=== PATIENT | male | born 1970 | race Caucasian/White ===

== ENCOUNTER 2017-10-15 09:37 | Day surgery (SDC) | payer OTHER ==
[2017-10-15] MEDS ORDERED: Ringers Lactate 1,000 ML IV ONE (09:57)
[2017-10-15] MEDS: DEXAMETHASONE 10 MG/ML VIAL ONE ×2 (11:16→11:57)
[2017-10-15] MEDS ORDERED: PROPOFOL 200 MG/20 ML VIAL IV ONE (11:19)
[2017-10-15] MEDS ORDERED: MIDAZOLAM HCL 2 MG/2 ML INJ ONE (11:19)
[2017-10-15] MEDS ORDERED: FENTANYL CITR 100 MCG/2 ML ONE (11:19)
--- NOTE | 2017-10-15 12:05 | P.OP ---
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 Details of Operation: The patient was brought to the operating room and placed under general anesthesia via inhalation mask. The left ear was visualized under the operating microscope. A speculum aided visualization. Cerumen was removed from the canal using a wire curette. A myringotomy incision was made in the superior aspect with a 27g needle. A second myringotomy was made in the inferior aspect, about 6oclock on the TM. Dexamethasone 10mg/ml was instilled to the middle ear space until completely filled and a cotton ball placed at the meatus. Due to serous middle ear effusion or notable middle ear retraction, no tympanostomy tube placement was indicated. Disposition: The patient was then awakened from anesthesia and taken to the recovery room in stable condition.
== END 2017-10-15 13:18 | disposition home or self-care (01) ==
LOC: OR 09:37
PROVIDERS: ATTEND Otolaryngology
PROC: 3E0 Administration, Physiological Systems and Anatomical Regions, Introduction (ICD-10-PCS; 2017-10-15)
PROC: 099670Z Drainage of Left Middle Ear with Drainage Device, Via Natural or Artificial Opening (ICD-10-PCS; principal; 2017-10-15 11:00)
DX: H65.02 Acute serous otitis media, left ear (principal); H91.22 Sudden idiopathic hearing loss, left ear; H93.12 Tinnitus, left ear; I10 Essential (primary) hypertension; Z72.0 Tobacco use; Z82.49 Family history of ischemic heart disease and other diseases of the circulatory system; Z82.3 Family history of stroke
CPT/HCPCS: J1100; J2250; J3010

== ENCOUNTER 2022-02-21 12:28 | Emergency (ER) | payer OTHER ==
--- OUTSIDE RECORDS SUMMARY | 2022-02-21 12:40 | XMS REPORT | Continuity of Care Document ---
:1970 Author Organization [facility] t Address [address] [place] [address] Care Team Providers Name Role Phone DUONG PEREZ Primary Care Physician Unavailable BENEDICTO FAGAN Attending Clinician Unavailable Arjun_Miguel Attending Clinician Unavailable Kuldip Admitting Clinician Unavailable Problems This patient has no known problems. Allergies, Adverse Reactions, Alerts Allergy Allergy Status Severity Reaction(s) Onset Inactive Treating Comm ents Source Name Type Date Date Clinician [facility] Active N/V [facility] H INGREDI 06-08 ity of [facility] 00:00: [address] Medications This patient has no known medications. Procedures This patient has no known procedures. Encounters Start End Encounter Admission Attending Care Care Encounter Source Date/Time Date/Time Type Type Clinicians Facility Department ID 2022-02-26 2022-02-26 Outpatient Stanislav FAGAN [facility] [id number] [facility] 09:30:00 09:30:00 [facility] [id number] 2019-08-30 Outpatient Kuldip [facility] [id number] [place] 10:42:00 10:42:00 [id number] [facility] Results This patient has no known results.
[2022-02-21] MEDS ORDERED: LIDOCAINE JELLY 2%- 5 ML TUBE ONE (13:09)
[2022-02-21] MEDS ORDERED: LIDOCAINE 1% MPF 5 ML VIAL ONE (13:19)
--- NOTE | 2022-02-21 14:52 | ER ---
Nurse's Notes [facility] Name: Alvaro Priest Age: 51 yrs Sex: Male : 1970 Arrival Date: 02/21/2022 Time: 12:30 Bed 20 [facility] MD: Boaz Chavez Diagnosis: Thrombosed external hemorrhoid Presentation: 02/21 12:40 Chief complaint: Painful hemorrhoid x 3 days. Coronavirus screen: At this time, the hb client does not indicate any symptoms associated with coronavirus-19. Ebola Screen: No symptoms or risks identified at this time. Initial Sepsis Screen: Does the patient meet any 2 criteria? No. Patient's initial sepsis screen is negative. Does the patient have a suspected source of infection? No. Patient's initial sepsis screen is negative. Risk Assessment: Do you want to hurt yourself or someone else? Patient reports no desire to harm self or others. Onset of symptoms was February 19, 2022. 12:40 Method Of Arrival: Ambulatory 12:40 Acuity: KYREE 3 hb Historical: - Allergies: 12:41 No Known Allergies; hb - Immunization history:: Client reports having NOT received the Covid vaccine. - Social history:: Smoking status: Patient denies any tobacco usage or history of. Screenin:03 Abuse screen: Denies threats or abuse. Denies injuries from another. Nutritional tp1 screening: No deficits noted. Tuberculosis screening: No symptoms or risk factors identified. Fall Risk No fall in past 12 months (0 pts). No secondary diagnosis (0 pts). No IV (0 pts). Ambulatory Aid- None/Bed Rest/Nurse Assist (0 pts). Gait- Normal/Bed Rest/Wheelchair (0 pts) Mental Status- Oriented to own ability (0 pts). Total Shah Fall Scale indicates No Risk (0-24 pts). Assessment: 12:50 General: Appears in no apparent distress. uncomfortable, Behavior is calm, cooperative. tp1 Pain: Complains of pain in buttocks Pain does not radiate. Pain currently is 8 out of 10 on a pain scale. Quality of pain is described as sharp, Is continuous. Neuro: Level of Consciousness is awake, alert, obeys commands, Oriented to person, place, time, situation. Cardiovascular: Patient's skin is warm and dry. Respiratory: Airway is patent Respiratory effort is even, unlabored. GI: Abdomen is round non-distended, Last BM was February 19, 2022. Patient currently denies bloody stool, nausea, vomiting. : No signs and/or symptoms were reported regarding the genitourinary system. EENT: No signs and/or symptoms were reported regarding the EENT system. Derm: protruding hemoid that appears red with a small amount of drainage. Musculoskeletal: Circulation, motion, and sensation intact. 13:50 Reassessment: Patient appears in no apparent distress at this time. No changes from tp1 previously documented assessment. Patient and/or family updated on plan of care and expected duration. Pain level reassessed. Patient is alert, oriented x 3, equal unlabored respirations, skin warm/dry/pink. 14:54 Reassessment: Patient appears in no apparent distress at this time. Patient is alert, tp1 oriented x 3, equal unlabored respirations, skin warm/dry/pink. Patient states feeling better. Vital Signs: 12:40 BP 141 / 101; Pulse 110; Resp 20; Temp 98.1; Pulse Ox 97% on R/A; Weight 112.49 kg; hb Height 6 ft. 1 in. (185.42 cm); Pain 10/10; 13:03 BP 131 / 90; Pulse 95; Resp 17; Pulse Ox 96% on R/A; tp1 14:40 BP 131 / 85; Pulse 88; Resp 16; Pulse Ox 100% on R/A; tp1 12:40 Body Mass Index 32.72 (112.49 kg, 185.42 cm) ED Course: 12:30 Patient arrived in ED. as 12:31 Boaz Chavez is Private Physician. as 12:35 Carrington Huerta PA is PHCP. m 12:35 Hilda Flores MD is Attending Physician. [facility] 12:41 Triage completed. hb 12:42 Arm band placed on. hb 12:50 Zenaida Ocampo, [place] is Primary Nurse. 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 tp1 13:03 Patient has correct armband on for positive identification. Placed in gown. Bed in low tp1 position. Call light in reach. Side rails up X 1. Adult w/ patient. 13:55 lancing Hemoriod, PT tolerated well. tp1 15:10 Patient did not have IV access during this emergency room visit. tp1 Administered Medications: 13:03 Drug: Lidocaine Gel 2 % 1 application Route: Mucous Membrane; tp1 13:55 Drug: Lidocaine (1 %) 5 ml Volume: 5 ml; Route: Infiltration; tp1 13:58 Not Given (Physician Discretion): Lidocaine-Epinephrine -1%: (1:100,000) 20 ml 20 ml tp1 Infiltration once; to bedside Medication: 13:03 VIS not applicable for this client. tp1 Outcome: 14:52 Discharge ordered by . charlie 15:10 Discharged to home ambulatory, with family. tp1 15:10 Condition: good 15:10 Discharge instructions given to patient, Instructed on discharge instructions, follow up and referral plans. Demonstrated understanding of instructions, follow-up care. 15:10 Patient left the ED. tp1 Signatures: Carrington Huerta PA PA jmm Martinez, Amelia as Baxter, Heather, RN RN Zenaida Ocampo RN RN tp1 Corrections: (The following items were deleted from the chart) 12:54 12:40 BP 141 / 101; Pulse 110bpm; Resp 20bpm; Pulse Ox 97% RA; 112.49 kg; Height 6 ft. hb 1 in.; BMI: 32.7; Pain 10/10; hb
--- NOTE | 2022-02-21 14:52 | EDPHYS ---
Physician Documentation [facility] Name: Alvaro Priest Age: 51 yrs Sex: Male : 1970 Arrival Date: 02/21/2022 Time: 12:30 Bed 20 Private MD: Boaz Chavez ED Physician Hilda Flores HPI: 02/21 12:59 This 51 yrs old Male presents to ER via Ambulatory with complaints of Hemorrhoids. jmm 12:59 The patient presents to the emergency department with pain in the rectal area. Onset: jmm The symptoms/episode began/occurred gradually, 3 day(s) ago. Patient complains of rectal pain secondary to a large external hemorrhoid beginning approx 3 days ago. Similar symptoms have occurred in the past. . Historical: - Allergies: 12:41 No Known Allergies; hb - Immunization history:: Client reports having NOT received the Covid vaccine. - Social history:: Smoking status: Patient denies any tobacco usage or history of. ROS: 12:59 Constitutional: Negative for fever, chills, and weight loss, Cardiovascular: Negative jmm for chest pain, palpitations, and edema, Respiratory: Negative for shortness of breath, cough, wheezing, and pleuritic chest pain. 12:59 Abdomen/GI: Positive for rectal pain. 12:59 All other systems are negative. Exam: 12:59 Constitutional: This is a well developed, well nourished patient who is awake, alert, jmm and in no acute distress. Head/Face: atraumatic. Eyes: EOMI, no conjunctival erythema appreciated ENT: Moist Mucus Membranes Neck: Trachea midline, Supple Chest/axilla: Normal chest wall appearance and motion. Cardiovascular: Regular rate and rhythm. No edema appreciated Respiratory: Normal respirations, no respiratory distress appreciated 12:59 Skin: General appearance color normal MS/ Extremity: Moves all extremities, no obvious deformities appreciated, no edema noted to the lower extremities Neuro: Awake and alert Psych: Behavior is normal, Mood is normal, Patient is cooperative and pleasant 12:59 Abdomen/GI: Rectal exam: hemorrhoid(s), external, with inflammation, with pain, with thrombosis, mass, that is moderate-sized, with tenderness, tenderness. Vital Signs: 12:40 BP 141 / 101; Pulse 110; Resp 20; Temp 98.1; Pulse Ox 97% on R/A; Weight 112.49 kg; hb Height 6 ft. 1 in. (185.42 cm); Pain 10/10; 13:03 BP 131 / 90; Pulse 95; Resp 17; Pulse Ox 96% on R/A; tp1 14:40 BP 131 / 85; Pulse 88; Resp 16; Pulse Ox 100% on R/A; tp1 12:40 Body Mass Index 32.72 (112.49 kg, 185.42 cm) hb Procedures: 16:11 I \T\ D: Incision and drainage was performed for an abscess of the external hemorrhoid jmm Prepped with Betadine, Anesthetized with 2 ml's 1% Lidocaine. Incised with #11 blade. Drained large amount bloody fluid. the patient tolerated the procedure well. MDM: 12:51 Patient medically screened. jmm 14:50 Data reviewed: vital signs, nurses notes. Counseling: I had a detailed discussion with [facility] the patient and/or guardian regarding: the historical points, exam findings, and any diagnostic results supporting the discharge/admit diagnosis, the need for outpatient follow up, to return to the emergency department if symptoms worsen or persist or if there are any questions or concerns that arise at home. 02/21 12:49 Order name: Garrywn patient; Complete Time: 13:03 [facility] Administered Medications: 13:03 Drug: Lidocaine Gel 2 % 1 application Route: Mucous Membrane; tp1 13:55 Drug: Lidocaine (1 %) 5 ml Volume: 5 ml; Route: Infiltration; tp1 13:58 Not Given (Physician Discretion): Lidocaine-Epinephrine -1%: (1:100,000) 20 ml 20 ml tp1 Infiltration once; to bedside Disposition: 16:16 STAFF ATTESTATION: The patient's history, exam findings, diagnostics and a summary of sd2 any interventions or procedures was reviewed in detail with the ED [facility]. I confirm the diagnosis as documented by the [facility] and I agree with the care plan articulated in the disposition section with regards to our discussion of the patient's case. Hilda Flores MD. Disposition Summary: 02/21/22 14:52 Discharge Ordered Location: Home [facility] Condition: Stable [facility] Diagnosis - Thrombosed external hemorrhoid [facility] Followup: [facility] - With: Private Physician - When: 2 - 3 days - Reason: Recheck today's complaints, Continuance of care, Re-evaluation by your physician Discharge Instructions: - Discharge Summary Sheet jmm - Hemorrhoids jm Forms: - Medication Reconciliation Form [email or web address] - Thank You Letter charlie - Antibiotic Education jmm - Work release form terrellm - Prescription Opioid Use charlie Signatures: Carrington Huerta PA PA jmm Baxter, Heather RN RN Zenaida Argueta RN RN tp1 Hilda Flores MD MD sd2
[2022-02-22 23:34] VITALS: TEMP 98.1
[2022-02-22 23:36] VITALS: BP 131/90; O2SAT 96
== END 2022-02-21 15:10 | disposition home or self-care (01) ==
LOC: ER 12:28
PROC: 0WJM0ZZ Inspection of Male Perineum, Open Approach (ICD-10-PCS; principal; 2022-02-21)
DX: K64.5 Perianal venous thrombosis (principal)
CPT/HCPCS: 99283; 46083; J2001